=== PATIENT | female | born 1950 | race Caucasian/White ===

== ENCOUNTER → 2016-11-17 | Outpatient (CLI) | payer MEDICARE ==
--- NOTE | 2016-11-17 15:57 | RAD ---
Bilateral lower extremity venous Doppler ultrasound History: Bilateral lower extremity swelling. Comparison: None. Procedure: Color Doppler, spectral Doppler, and grayscale images are obtained with and without compression in the area of the common femoral vein, superficial femoral vein - femoral vein junction, main femoral vein (superficial femoral vein) and popliteal vein. Veins of the proximal calf are also imaged. Findings: There is normal duplex flow, color flow and compressibility of all visualized vein segments. No evidence of deep venous thrombosis is present. Left calf demonstrate superficial venous varicosities. Impression: No evidence of lower extremity deep venous thrombosis.
--- NOTE | 2016-11-17 16:42 | RAD ---
Bilateral lower extremity arterial ultrasound, 11/17/2016: History: Peripheral vascular disease, diabetes, claudication, leg swelling Duplex evaluation of the major arteries in both lower extremities was performed including grayscale, color-flow and spectral Doppler analysis. There are mild to moderate scattered atherosclerotic plaques bilaterally. The right common femoral artery demonstrates a biphasic Doppler waveform. The superficial femoral and popliteal Doppler waveforms on the right are monophasic. At the mid superficial femoral artery level on the right there is a prominent focal velocity acceleration up to 500 cm/s. This suggests underlying high-grade stenosis. Patent posterior tibial, peroneal and anterior tibial arteries are evident in the right lower leg demonstrating monophasic Doppler waveforms. The right dorsalis pedis artery is patent with a monophasic Doppler waveform. On the left, the common femoral Doppler waveform is biphasic. There is a velocity acceleration in the left mid superficial femoral artery up to 350 cm/s. This finding suggests moderate stenosis, although not clearly confirmed by the color images. The femoral and popliteal Doppler waveforms distal to this level are monophasic. Patent posterior tibial, anterior tibial and peroneal arteries are present in the left lower leg demonstrating monophasic Doppler waveforms. The left dorsalis pedis artery is patent with a monophasic Doppler waveform. IMPRESSION: 1. Mild to moderate scattered atherosclerotic plaquing. 2. Doppler findings suggesting high-grade stenosis in the mid right superficial femoral artery and moderate stenosis in the mid left superficial femoral artery. 3. Three-vessel runoff in both lower extremities demonstrating mildly degraded monophasic Doppler waveforms.
--- NOTE | 2016-11-18 07:37 | RAD ---
EXAM: MAMMO JENNIFER SCREENING BILATERAL. HISTORY: Screening. COMPARISON: 06/08/2017. FINDINGS: 2-D and 3-D tomosynthesis mammograms were obtained of both breasts in the CC and MLO projections. Computer-aided detection (CAD) was utilized. The breast parenchyma is heterogeneously dense which could reduce sensitivity of mammography (tissue density C). No dominant suspicious mass, suspicious microcalcifications, or architectural distortion is identified. Scattered, benign-appearing calcifications are seen in both breasts. IMPRESSION: No mammographic evidence of malignancy. BI-RADS CATEGORY: 2 BENIGN FINDING RECOMMENDED FOLLOW-UP: 12M 12 MONTH FOLLOW-UP PQRS compliance statement: Patient information was entered into a reminder system with a target due date for the next mammogram. Mammography is a sensitive method for finding small breast cancers, but it does not detect them all and is not a substitute for careful clinical examination. A negative mammogram does not negate a clinically suspicious finding and should not result in delay in biopsying a clinically suspicious abnormality. "Our facility is accredited by the [employer] Mammography Program."
== END | disposition home or self-care (01) ==
LOC: US 12:50
PROVIDERS: ATTEND Family Medicine
DX: I70.0 Atherosclerosis of aorta (principal); I73.9 Peripheral vascular disease, unspecified; M79.89 Other specified soft tissue disorders; E11.9 Type 2 diabetes mellitus without complications; F17.200 Nicotine dependence, unspecified, uncomplicated; Z12.31 Encounter for screening mammogram for malignant neoplasm of breast
CPT/HCPCS: 77063; 93925; 93970; G0202; 77067

== ENCOUNTER → 2017-01-12 | Outpatient (CLI) | payer MEDICARE ==
--- NOTE | 2017-01-12 16:06 | RAD ---
Examination: Left upper extremity venous duplex History: History of left arm swelling for 3 weeks Comparison: None available Technique: Grayscale, color Doppler 2-D, spectral waveform analysis of the left upper extremity venous system was performed Findings: The visualized internal jugular vein, subclavian vein, axillary vein, brachial vein, basilic vein, cephalic vein, radial, ulnar vein are patent. The visualized right subclavian vein is patent. Impression: No evidence of deep venous thrombosis in left upper extremity venous system.
== END | disposition home or self-care (01) ==
LOC: US 14:49
PROVIDERS: ATTEND Family Medicine
DX: M79.89 Other specified soft tissue disorders (principal); R60.0 Localized edema
CPT/HCPCS: 93971

== ENCOUNTER → 2017-09-21 | Outpatient (CLI) | payer MEDICARE ==
--- NOTE | 2017-09-21 15:03 | CARD ---
MR#: [id number] Date of Study: 09/21/2017 Ordering Physician: MABLE DUBON, Referring Physician: MABLE DUBON Tech: Olivia Benjamin RDCS APPROVED REPORT EXAM: Two-dimensional and M-mode echocardiogram with Doppler and color Doppler. Other Information Quality : Good INDICATION Mitral Regurgitation 2D DIMENSIONS RVDd2.9 (2.9-3.5cm)Left Atrium(2D)3.6 (1.6-4.0cm) IVSd1.1 (0.7-1.1cm)Aortic Root(2D)3.0 (2.0-3.7cm) LVDd4.4 (3.9-5.9cm)LVOT Diameter2.1 (1.8-2.4cm) PWd1.1 (0.7-1.1cm)LVDs2.9 (2.5-4.0cm) FS (%) 34.5 %SV55.9 ml LVEF(%)60.0 (>50%) Aortic Valve AoV Peak Naveen.191.6cm/sAoV VTI40.8cm AO Peak GR.14.7mmHgLVOT Peak Naveen.138.1cm/s LVOT VTI 23.99cmAO Mean GR.7mmHg BINTA (VMAX)2.38wt2ZSZ (VTI)1.99cm2 Mitral Valve MV E Tdddqavc82.5cm/sMV DECEL EAZA046rx MV A Wnmvzcre015.2cm/sE/A Ratio0.9 Tricuspid Valve TR P. Cspxzktx467xz/sRAP KJXMBXNA8qnEn TR Peak Gr.30dqQkRLMI12gvFd Pulmonary Vein S1 Wukplpst97.2cm/sD2 Nsjbliyq85.7cm/s LEFT VENTRICLE The left ventricle is normal size. There is normal left ventricular wall thickness. The left ventricu lar systolic function is normal and the ejection fraction is within normal range. The Ejection Fracti on is 55-60%. There is normal LV segmental wall motion. Transmitral Doppler flow pattern is Grade I-a bnormal relaxation pattern. RIGHT VENTRICLE The right ventricle is normal size. There is normal right ventricular wall thickness. The right ventr icular systolic function is normal. ATRIA The left atrium size is normal. The right atrium size is normal. The interatrial septum is intact wit h no evidence for an atrial septal defect or patent foramen ovale as noted on 2-D or Doppler imaging. AORTIC VALVE The aortic valve is mildly thickened but opens well. Doppler and Color Flow revealed no significant a ortic regurgitation. There is no significant aortic valvular stenosis. MITRAL VALVE The mitral valve is calcified but opens well. There is no evidence of mitral valve prolapse. There is no mitral valve stenosis. Doppler and Color Flow revealed no mitral valve regurgitation noted. TRICUSPID VALVE The tricuspid valve is normal in structure and function. Doppler and Color Flow revealed mild tricusp id regurgitation.The PA pressure was estimated at 37 mmHg. There is no tricuspid valve stenosis. PULMONIC VALVE Doppler and Color Flow revealed no pulmonic valvular regurgitation. There is no pulmonic valvular maninder nosis. GREAT VESSELS The aortic root is normal in size. The ascending aorta is mildly dilated at 3.5 cm. The IVC is normal in size and collapses >50% with inspiration. PERICARDIAL EFFUSION There is no evidence of significant pericardial effusion. Critical Notification Critical Value: No <Conclusion> The left ventricular systolic function is normal and the ejection fraction is within normal range. Th e Ejection Fraction is 55-60%. There is normal LV segmental wall motion. Doppler and Color Flow revealed mild tricuspid regurgitation.The PA pressure was estimated at 37 mmHg . No significant mitral regurgitation. The ascending aorta is mildly dilated at 3.5 cm. Signed by : True Andersen, Electronically Approved : 09/21/2017 15:03:24
== END | disposition home or self-care (01) ==
LOC: ECHO 12:44
PROVIDERS: ATTEND General Practice
DX: I08.1 Rheumatic disorders of both mitral and tricuspid valves (principal)
CPT/HCPCS: 93306

== ENCOUNTER → 2018-10-04 | Outpatient (CLI) | payer OTHER ==
[~2018-10-04] MED LIST: BUPIVACAINE-EPI 0.25%-1:200000 MPF 30 ML VIAL. ONE; HYDR-3165 PO; IBUP200T44 PO; IPRA3AMP29 NEB; LEVO75TA5 PO; LORA0.5T PO; METF500T16 PO; MOME13HF IH; OXYB5TAB33 PO; ROPI0.5T PO; SERT100T PO; SPIR25TA5 PO; TRAM50TA PO
[2018-10-04 11:27] VITALS: BP 123/62
--- NOTE | 2018-10-04 12:19 | PDOC4 ---
Operative Report DATE 10/04/2018 Preop Diagnosis Mass left upper back shoulder Post-op Diagnosis Mass left upper back and shoulder consistent with sebaceous cyst Operation Performed Patient is a 68-year-old female with complaints of a large mass on her upper back at her left shoulder states that his been getting larger and requests removal. Procedure of sedation of mass was explained to the patient detail risk benefits were also discussed including bleeding infection. Alternatives to this procedure also discussed with patient is seemed to understand and gave both verbal and written consent had procedure performed. Patient was taken to the [place] room placed in the right lateral positioning the area over the mass was prepped and draped usual sterile fashion using ChloraPrep. In over the mass was injected with half percent lidocaine with epinephrine incision was made with 15 blade scalpel was carried out to the cutaneous tissues entrain a sebaceous cyst the sebum contents were expressed and the sac was excised sharply with Metzenbaum scissors and sent for pathology. Wound was closed in 2 layers a deep layer running 3-0 Vicryl and the skin was reapproximate for septic and a Monocryl Mastisol Steri-Strips and island dressing were applied. Patient tolerated procedure well was discharged home in stable condition all sponge instrument needle counts listed as correct estimated blood loss 5 mL Surgeon Nato Anesthesiologist Local anesthesia ANESTHESIA PROPOSED: LOCAL Blood Loss 5 mL Specimen Sebaceous cyst 6 x 6 cm Complications None MERCY JEFFERSON MD Oct 04, 2018 12:19
--- NOTE | 2018-10-06 13:09 | PATHOLOGY ---
[facility] Accession Number: [id number] . 01 Material submitted: . LEFT SHOULDER MASS . 01 Clinical history: . Left shoulder mass . 02 Diagnosis: Fibroadipose tissue, left shoulder mass excision: - Epidermal inclusion cyst, with focal erosion of cyst lining and foreign body granulomatous reaction. (JPM:apartment leasing consultant; 10/04/2018) MBR/10/05/2018 . 02 Comment: There is no evidence of malignancy. (JPM:apartment leasing consultant; 10/04/2018) . 02 Electronically signed: . Jh Luz MD, Pathologist NPI- [id number] . 01 Gross description: . The specimen is received in formalin, labeled "Michael Onofre, left shoulder mass", is a previously opened, disrupted quintanilla-white cyst measuring 6.2 x 4.0 cm. Further sectioning reveals the cyst wall adherent with keratinaceous material. The wall has an average thickness of less than 0.1 cm. No discrete granulation tissue or papillary excrescence identified. The container is filled with abundant keratinaceous material. Gut Carrier tissue is submitted in A1. ([facility]; 10/04/2018) [facility]S/SHS . 02 Pathologist provided ICD-10: L72.0 . 02 CPT . 354064 Specimen Comment: A courtesy copy of this report has been sent to Specimen Comment: [phone], . Specimen Comment: Report sent to / DR DUBON Specimen Comment: A duplicate report has been generated due to demographic updates. Performed at: 01 [facility] [place] [id number] [facility] [address], [place], [place] [id number] MD Rocky Marcos MD Phone: [phone] Performed at: 02 [facility] [place] [address] [place], [place] [id number] MD Jh Luz MD Phone: [phone]
== END | disposition home or self-care (01) ==
LOC: SURG 10:00
PROVIDERS: ATTEND Surgery
DX: L72.0 Epidermal cyst (principal); Z88.2 Allergy status to sulfonamides; E11.9 Type 2 diabetes mellitus without complications; Z79.84 Long term (current) use of oral hypoglycemic drugs; Z83.3 Family history of diabetes mellitus; Z82.49 Family history of ischemic heart disease and other diseases of the circulatory system; F17.210 Nicotine dependence, cigarettes, uncomplicated; Z72.89 Other problems related to lifestyle; Z79.899 Other long term (current) drug therapy
CPT/HCPCS: 11406; 12032; 88304; J3490; 11402

== ENCOUNTER → 2018-11-08 | Outpatient (CLI) | payer OTHER ==
[2018-10-04 11:27] VITALS: BP 123/62
[~2018-11-08] MED LIST changes: -BUPIVACAINE-EPI 0.25%-1:200000 MPF 30 ML VIAL. ONE
--- NOTE | 2018-11-08 14:12 | RAD ---
EXAM: Chest, 2 views. HISTORY: COPD. COMPARISON: None. FINDINGS: 2 views of the chest are obtained. There is no infiltrate, pleural effusion or pneumothorax. The heart is normal in size. There is hyperinflation due to inspiratory effort or emphysema. There is a small nodular opacity overlying the right mid thorax, possibly due to a partially calcified granuloma. There are healed or healing right rib fractures. IMPRESSION: 1. No acute pulmonary finding. 2. Suspected COPD. 3. Small nodular opacity overlying the right mid thorax, possibly due to a partially calcified granuloma. Short-term radiographic follow-up can be performed to exclude a noncalcified nodule in this location. Electronically signed by: Ryann Fajardo MD (11/08/2018 2:09 PM) [place] [id number]
--- NOTE | 2018-11-10 12:27 | RAD ---
DATE: 11/08/2018 EXAM: MAMMO JENNIFER SCREENING BILATERAL HISTORY: Routine screening COMPARISON: Were 12/12/2016 This study was interpreted with the benefit of Computerized Aided Detection (CAD). Breast Density: HETERO The breast parenchyma is heterogenously dense, which could reduce sensitivity of mammography. Breast parenchyma level C. FINDINGS: 2-D and 3-D tomosynthesis imaging was performed in CC and MLO projections. No new or enlarging breast densities are seen. Bilateral microcalcifications have progressed. The majority of these have a benign appearance. There is mild clustering of microcalcifications in the right breast just medial to the midline. Similar microcalcifications seen superiorly in the left breast on the previous study have evolved into a coarse rim-like calcification. IMPRESSION: Increasing, but probably benign microcalcifications as described above. Follow-up right mammography in 6 months and bilateral mammography at one year is suggested. BI-RADS CATEGORY: 3 PROBABLY BENIGN FINDING(S)-SHORT INTERVAL FOLLOW-UP SUGGESTED RECOMMENDED FOLLOW-UP: 6M 6 MONTH FOLLOW-UP PQRS compliance statement: Patient information was entered into a reminder system with a target due date for the next mammogram. Mammography is a sensitive method for finding small breast cancers, but it does not detect them all and is not a substitute for careful clinical examination. A negative mammogram does not negate a clinically suspicious finding and should not result in delay in biopsying a clinically suspicious abnormality. "Our facility is accredited by the [employer] Mammography Program."
--- NOTE | 2018-11-14 16:04 | RAD ---
Indication: Postmenopausal screening for osteoporosis. COMPARISON: April 21, 2005. Bone Density: -BMD: (g/cm2) - AP Spine Total (L1-L4).......... 1.005. - Total right Hip................. 0.804. T-Score: - AP Spine Total (L1-L4)......... -1.5. - Total right Hip................. -1.2. Z-Score: - AP Spine Total (L1-L4).......... -0.7. - Total right Hip................. -0.5. World Health Organization criteria for BMD interpretation classify patients as Normal (T-score at or above -1.0), Osteopenic (T-score between -1.0 and -2.5), or Osteoporotic (T-score at or below -2.5). Impression: 1. AP Spine Total L1-L4--- osteopenia. Since the previous study, there has been a decrease in the BMD of 9.5%. 2. Total right Hip--- osteopenia. Since the previous study, there has been a decrease in the BMD of 16.5%. Electronically signed by: Orestes Hale MD (11/14/2018 4:01 PM) [facility]
== END | disposition home or self-care (01) ==
LOC: DXRAD 10:06
PROVIDERS: ATTEND Family Medicine
DX: Z12.31 Encounter for screening mammogram for malignant neoplasm of breast (principal); Z13.820 Encounter for screening for osteoporosis; M85.89 Other specified disorders of bone density and structure, multiple sites; J44.9 Chronic obstructive pulmonary disease, unspecified
CPT/HCPCS: 71046; 77063; 77067; 77080

== ENCOUNTER → 2019-02-08 | Outpatient (CLI) | payer OTHER ==
[2018-10-04 11:27] VITALS: BP 123/62
--- NOTE | 2019-02-08 10:15 | RAD ---
Chest radiograph 02/08/2019 12:00 AM INDICATION: Productive cough for one month COMPARISON: November 08, 2018 TECHNIQUE: Frontal and lateral views of the chest are provided. FINDINGS: The cardiomediastinal silhouette is within normal limits. There are no pleural effusions. There is no pulmonary vascular congestion. There is no pneumothorax. 5.2 cm rounded masslike area of consolidation in the superior segment right lower lobe. There is an additional masslike area versus consolidation in the left suprahilar region with 2 nodular opacities measuring up to 2.8 cm. No significant osseous abnormality is identified. IMPRESSION: Masslike areas of consolidative changes in the left suprahilar region and right superior segment right lower lobe are new from November 08, 2018. Frontal considerations would include multifocal pneumonia versus metastatic disease. Recommend follow-up to resolution or further evaluation with CT chest. Electronically signed by: Lakesha Gordon MD (02/08/2019 10:11 AM) [id number]
== END | disposition home or self-care (01) ==
LOC: DXRAD 08:52
PROVIDERS: ATTEND Family Medicine
DX: J44.0 Chronic obstructive pulmonary disease with (acute) lower respiratory infection (principal)
CPT/HCPCS: 71046

== ENCOUNTER → 2019-02-13 | Outpatient (CLI) | payer OTHER ==
[2018-10-04 11:27] VITALS: BP 123/62
[~2019-02-13] MED LIST changes: +IOHEXOL 300 MG/ML 75 ML VIAL. IV ONE
--- NOTE | 2019-02-13 10:36 | RAD ---
EXAM: CT Chest with IV contrast CLINICAL HISTORY: Lung mass, history of asthma. COMPARISON: Chest x-ray 02/08/2019 TECHNIQUE: CT of the chest following the administration of intravenous contrast. Axial, coronal and sagittal reformatted images were generated. ---PQRS compliance statement - One or more of the following individualized dose reduction techniques were utilized for this study: 1. Automated exposure control 2. Adjustment of the mA and/or kV according to patient size 3. Use of iterative reconstruction technique--- FINDINGS: CHEST: Heart is not enlarged. Coronary calcifications are seen. No pericardial effusion. Small right pleural effusion. No left pleural effusion. No pneumothorax. A right thyroid nodule measures approximately 3.5 x 2.7 cm and should be further assessed with ultrasound and possible FNA. Enlarged right hilar lymph node measures 2.4 x 2 cm. A right infrahilar lymph node measures 2.2 x 1.2 cm (series 4 image 50). Several prominent left hilar lymph nodes are seen, measuring up to 9 mm short axis. A right paratracheal lymph node measures 1.2 x 1.1 cm. There is a large left lower lobe lung nodule measuring 4.9 x 4.7 cm (series 4 image 53) with small satellite nodules. The border is irregular. Associated groundglass opacities are also seen with interstitial prominence. Central low attenuation suggests central necrosis. A spiculated left upper lobe lung mass measures approximately 4.1 x 3 cm with central low attenuation likely necrosis. Small satellite nodule is seen measuring up to 1.2 cm. Visualized Upper abdomen: A 1.4 cm left adrenal nodule is seen. A 3.8 cm right adrenal mass is seen. Evaluation of the liver and spleen is limited given phase of contrast although no obvious lesion is identified. Bones: Sclerotic focus T8 may represent bone island. Degenerative changes of the spine are seen. IMPRESSION: 1. Bilateral lung masses are seen with central necrosis, suspicious for necrotic malignancy. This can be further evaluated by PET scan and/or biopsy. 2. Prominent and enlarged mediastinal and hilar lymph nodes are seen. These are suspicious for metastatic involvement. 3. Left adrenal nodule and right adrenal mass, highly suspicious for metastatic involvement, can be further assessed by PET. 4. A right thyroid nodule measures approximately 3.5 x 2.7 cm and should be further assessed with ultrasound and possible FNA if not previously evaluated. 5. Small right pleural effusion. Electronically signed by: Christophe Arguello MD (02/13/2019 10:33 AM) [facility]
== END | disposition home or self-care (01) ==
LOC: CT 08:53
PROVIDERS: ATTEND Family Medicine
DX: J90 Pleural effusion, not elsewhere classified (principal); R91.8 Other nonspecific abnormal finding of lung field; E04.1 Nontoxic single thyroid nodule; E27.9 Disorder of adrenal gland, unspecified; M47.814 Spondylosis without myelopathy or radiculopathy, thoracic region; I25.10 Atherosclerotic heart disease of native coronary artery without angina pectoris; E11.9 Type 2 diabetes mellitus without complications; J45.909 Unspecified asthma, uncomplicated; Z87.891 Personal history of nicotine dependence
CPT/HCPCS: 71260; Q9967

== ENCOUNTER 2019-03-02 13:53 | Emergency (ER) | payer OTHER ==
[~2019-03-02] VITALS: Ht 170.2 cm; Wt 60.3 kg
[~2019-03-02 13:53] MED LIST changes: -IOHEXOL 300 MG/ML 75 ML VIAL. IV ONE
--- NOTE | 2019-03-02 14:09 | PHYS DOC ---
Adult General Chief Complaint Chief Complaint: WEAKNESS/GENERALIZED HPI HPI 69-year-old female presents with generalized weakness and decreased appetite. Patient was recently diagnosed with possible lung cancer. She is scheduled for a biopsy next week. The last 4 days, she has had decreased appetite because anything she eats or drinks takes "nasty". He water has an unusual taste. She has been feeling more and more weak over these 4 days. She still has a productive cough, but admits the cough is improved from what it was a month ago. She has been through several rounds of antibiotics and prednisone by her PCP. She denies fever or chills. She denies nausea, vomiting, diarrhea, constipation. Review of Systems Review of Systems Constitutional: Denies fever or chills. Weakness. [] Eyes: Denies change in visual acuity, redness, or eye pain [] HENT: Denies nasal congestion or sore throat [] Respiratory: Cough without shortness of breath [] Cardiovascular: No additional information not addressed in HPI [] GI: Denies abdominal pain, nausea, vomiting, bloody stools or diarrhea [] : Denies dysuria or hematuria [] Musculoskeletal: Denies back pain or joint pain [] Integument: Denies rash or skin lesions [] Neurologic: Denies headache, focal weakness or sensory changes [] Endocrine: Denies polyuria or polydipsia [] All other systems were reviewed and found to be within normal limits, except as documented in this note. Current Medications Current Medications Current Medications Medications (Trade) Dose Ordered Sig/Fran Start Time Stop Time Status Last Admin Dose Admin Sodium Chloride 1,000 ml @ 1,000 mls/hr 1X ONCE 03/02/19 14:15 03/02/19 15:14 Allergies Allergies Allergies Coded Allergies Type Severity Reaction Last Updated Verified Sulfa (Sulfonamide Antibiotics) Allergy Unknown 02/13/19 Yes Physical Exam Physical Exam Constitutional: Well developed, well nourished, no acute distress, non-toxic appearance. [] HENT: Normocephalic, atraumatic, bilateral external ears normal, oropharynx dry, no oral exudates, nose normal. [] Eyes: PERRLA, EOMI, conjunctiva normal, no discharge. [] Neck: Normal range of motion, no tenderness, supple, no stridor. [] Cardiovascular:Heart rate regular rhythm, no murmur [] Lungs & Thorax: Bilateral breath sounds diminished, worse right base. [] Abdomen: Bowel sounds normal, soft, no tenderness, no masses, no pulsatile masses. [] Skin: Warm, dry, no erythema, no rash. [] Back: No tenderness, no CVA tenderness. [] Extremities: No tenderness, no cyanosis, no clubbing, ROM intact, no edema. [] Neurologic: Alert and oriented X 3, normal motor function, normal sensory function, no focal deficits noted. [] Psychologic: Affect normal, judgement normal, mood normal. [] EKG EKG Sinus rhythm, rate 93, normal axis, no ST elevations or depressions[] Radiology/Procedures Radiology/Procedures [] Impressions: CHEST PA LATERAL History: Weakness Comparison: 02/08/2019 two-view chest x-ray exam, 02/13/2019 CT chest with contrast. Findings: Right heart border is obscured due to presence of a large right pleural effusion. Spurring of the right lung apex is evident with evaluation at this level. Left upper lung mass is again seen.. Pulmonary vasculature is normal. Dextroconvexity of the thoracolumbar spine is present. Mild pulmonary hyperinflation suspected. IMPRESSION: Interval development of a large right pleural effusion with adjacent basilar atelectasis and obscuration of the right heart border. Previously seen right lower lung mass is obscured on this exam. Left upper lung mass again seen. Electronically signed by: Mahesh Shirley MD (03/02/2019 2:56 PM) [facility] DICTATED AND SIGNED BY: MAHESH SHIRLEY MD DATE: 03/02/19 [id number] CC: GABRIEL RODRIGUEZ DO; CINDY HELTON MD ~ Course & Med Decision Making Course & Med Decision Making Pertinent Labs and Imaging studies reviewed. (See chart for details) Primary interpretation of the patient's chest x-ray shows a large pleural effusion on the right. The patient's O2 was 88-89. We placed her on 2 L and she improved to 95%. Labs significant for several normal findings. Her sodium is 127. 1 L normal saline has been ordered. See chart for details. Her EKG is u nremarkable. I discussed the patient with Dr. Isaacs and he has accepted the patient for transfer to [facility] and admission. I discussed this with the patient and her family and they're in agreement with transfer. She will go by ambulance. [] Dragon Disclaimer Dragon Disclaimer This electronic medical record was generated, in whole or in part, using a voice recognition dictation system. Departure Departure: Impression: Primary Impression: Pleural effusion, right Additional Impressions: Shortness of breath Hypoxia Mass of left lung Mass of right lung Disposition: [facility] Admitting Physician: Cesar Isaacs Condition: STABLE Referrals: CINDY HELTON MD (PCP) Problem Qualifiers GABRIEL RODRIGUEZ DO Mar 02, 2019 14:09
[2019-03-02 14:14] LABS: BASO # 0.1 x10^3/uL (0.0-0.2); BASO % 0 % (0-3); EOS % 0 % (0-3); HEMATOCRIT 35.3 % (36.0-47.0); HEMOGLOBIN 11.7 g/dL (12.0-15.5); LYMPH # 0.7 x10^3/uL (1.0-4.8); LYMPH % 4 % (24-48); MEAN CORPUSCULAR HEMOGLOBIN 32 pg (25-35); MEAN CORPUSCULAR HGB CONC 33 g/dL (31-37); MEAN CORPUSCULAR VOLUME 97 fL (79-100); MONO # 1.4 x10^3/uL (0.0-1.1); MONO % 9 % (0-9); NEUT # 14.2 x10^3uL (1.8-7.7); NEUT % 87 % (31-73); PLATELET COUNT 419 x10^3/uL (140-400); RED BLOOD COUNT 3.63 x10^6/uL (3.50-5.40); RED CELL DISTRIBUTION WIDTH 13.9 % (11.5-14.5); WHITE BLOOD COUNT 16.4 x10^3/uL (4.0-11.0)
[2019-03-02] MEDS ORDERED: IV NORMAL SALINE 1,000ML 1,000 ML IV ONE (14:15)
[2019-03-02 14:29] LABS: ALBUMIN 2.2 g/dL (3.4-5.0); ALBUMIN/GLOBULIN RATIO 0.5 (1.0-1.7); CALCIUM 9.6 mg/dL (8.5-10.1); CREATININE 0.9 mg/dL (0.6-1.0); GFR 62.3; TOTAL BILIRUBIN 0.6 mg/dL (0.2-1.0)
[2019-03-02 14:40] LABS: % BANDS 13 % (0-9); % LYMPHS 5 % (24-48); % MONOS 4 % (0-10); % SEGS 78 % (35-66)
[2019-03-02 14:41] LABS: PLT ESTIMATE INCREASED (ADEQUATE)
[2019-03-02 14:42] LABS: TOXIC GRANULATION MOD; TOXIC VACUOLATION SLIGHT
[2019-03-02] MEDS ORDERED: MORPHINE SULFATE 2 MG/ML DISP.SYRIN. IV ONE ×2 (14:45→16:00)
--- NOTE | 2019-03-02 14:59 | RAD ---
CHEST PA LATERAL History: Weakness Comparison: 02/08/2019 two-view chest x-ray exam, 02/13/2019 CT chest with contrast. Findings: Right heart border is obscured due to presence of a large right pleural effusion. Spurring of the right lung apex is evident with evaluation at this level. Left upper lung mass is again seen.. Pulmonary vasculature is normal. Dextroconvexity of the thoracolumbar spine is present. Mild pulmonary hyperinflation suspected. IMPRESSION: Interval development of a large right pleural effusion with adjacent basilar atelectasis and obscuration of the right heart border. Previously seen right lower lung mass is obscured on this exam. Left upper lung mass again seen. Electronically signed by: Mahesh Loco MD (03/02/2019 2:56 PM) [facility]
[2019-03-02] MEDS ORDERED: ONDANSETRON PF 4 MG/2 ML VIAL. IV ONE (15:00)
--- NOTE | 2019-03-02 15:40 | EKG ---
[address] [address] Test Date: 2019-03-02 Test Time: 14:16:00 Pat Name: NARCISA CARDENAS Department: Room: Gender: F Speech Language Pathology Assistant: LANDY : 1950 Requested By: GABRIEL RODRIGUEZ Order Number: [id number] Reading MD: Measurements Intervals [place] Rate: 93 P: 82 [place]: 152 QRS: 2 QRSD: 78 T: 63 QT: 342 QTc: 428 Interpretive Statements SINUS RHYTHM R-S TRANSITION ZONE IN V LEADS DISPLACED TO THE LEFT LOW LIMB LEAD VOLTAGE NO SPECIFIC ECG ABNORMALITIES RI6.01 No previous ECG available for comparison
[2019-03-02 17:31] VITALS: BP 125/62
== END 2019-03-02 17:46 | disposition short-term general hospital (02) ==
LOC: ER 13:53
DX: J90 Pleural effusion, not elsewhere classified (principal); R09.02 Hypoxemia; R91.8 Other nonspecific abnormal finding of lung field; Z88.2 Allergy status to sulfonamides
CPT/HCPCS: 36415; 71046; 80053; 84484; 85007; 85025; 93005; 96374; 96375; 96376; 99285; J2270; J2405; J7030

== ENCOUNTER → 2019-04-18 | Outpatient (CLI) | payer MEDICARE ==
--- NOTE | 2019-04-19 10:15 | RAD ---
Examination: CT CHEST WO CONTRAST History: Emphysema Comparison/Correlation: 02/13/2019 CT chest with contrast Findings: Axial images of the chest were obtained without contrast. Sagittal and coronal reformatted images were provided. Right lower lobe bronchial wall thickening is present. Interstitial thickening of the right lower lung field noted. Scattered patchy infiltrates involving the right lung field are noted. Nodular punctate infiltrates involving the left lower lung field laterally also are present. At the anterior left mid thoracic level, there is a cavitary lesion with surrounding stranding. Right lateral basilar loculated pneumothorax or large cavitary lesion is present. Marked pleural thickening about this hydropneumothorax is evident. Small amount of fluid is present within the right pleural cavity at the posterior basilar aspect. Right adrenal gland nodule measuring 2.7 cm x 1.9 cm is present. Hounsfield units of up to 22 identified. Septations are suggested within it. Left adrenal gland hyperdense lesion measuring up to 1.2 cm diameter. Sclerotic T8 vertebral body lesion is again identified without significant change. Impression: Moderate-sized right posterior basilar loculated hydropneumothorax or possibly large right basilar cavitary lesion is new in the interval. Pleural wall thickening is normal. Patchy punctate nodular infiltrates and cavitary lesion noted. Correlate for underlying infectious etiologies. Bilateral adrenal gland nodules are stable in size. Discussed with Dr. Devyn Wise on 04/19/2019 at 10:11 AM. PQRS Compliance Statement: One or more of the following individualized dose reduction techniques were utilized for this examination: 1. Automated exposure control 2. Adjustment of the mA and/or kV according to patient size 3. Use of iterative reconstruction technique Electronically signed by: Mahesh Loco MD (04/19/2019 10:12 AM) [facility]
== END | disposition home or self-care (01) ==
LOC: CT 10:17
PROVIDERS: ATTEND Internal Medicine Pulmonary Disease
DX: J94.8 Other specified pleural conditions (principal); E27.8 Other specified disorders of adrenal gland; G95.89 Other specified diseases of spinal cord; J43.9 Emphysema, unspecified
CPT/HCPCS: 71250

== ENCOUNTER → 2019-05-05 | Outpatient (CLI) | payer MEDICARE ==
--- NOTE | 2019-05-05 13:28 | RAD ---
Chest radiograph 05/05/2019 12:00 AM INDICATION: Cough COMPARISON: 03/02/2019 TECHNIQUE: Frontal and lateral views of the chest are provided. FINDINGS: The cardiomediastinal silhouette is within normal limits. Decreased size of previously large right pleural effusion with adjacent compressive atelectasis or infiltrate. New pigtail catheter is identified at the right lung base with loculated right hydropneumothorax. There is nodular consolidation in the right lung base with possible cavitary lesion. Decrease in nodular opacity left upper lobe with more bandlike appearance. No significant osseous abnormality is identified. IMPRESSION: Pigtail catheter is identified the right lung base with significant decrease in right sided large pleural effusion. There is either a loculated hydropneumothorax versus cavitary lesion at the right lung base. Previously seen nodular consolidation in the left upper lobe has decreased in size and more bandlike and linear. Electronically signed by: Lakesha Gordon MD (05/05/2019 1:25 PM) [id number]
== END | disposition home or self-care (01) ==
LOC: DXRAD 12:24
PROVIDERS: ATTEND Internal Medicine Critical Care Medicine
DX: J90 Pleural effusion, not elsewhere classified (principal)
CPT/HCPCS: 71046

== ENCOUNTER → 2019-05-15 | Outpatient (CLI) | payer MEDICARE ==
--- NOTE | 2019-05-15 14:26 | RAD ---
CT of the chest without contrast 05/15/2019 INDICATION: Emphysema. Productive cough. Pancreas O. Valle for many years. COMPARISON STUDY: CT of the chest without contrast April 18, 2019. TECHNIQUE: Multidetector CT imaging of the chest was performed without contrast FINDINGS: The large loculated hydropneumothorax on the right is minimally decreased with respect to comparison study. Predominantly the air component of the pleural fluid collection appears to be what has decreased in the interim. Multifocal areas of markedly pleural thickening are seen circumferentially involving this process. Areas of internal septation are identified. Other parenchymal opacities including groundglass opacification are seen throughout the bilateral lungs similar to comparison study. Cavitary lesions in the left upper lobe are stable from comparison exam. The thyroid is enlarged bilaterally. Thyroid is heterogenous in attenuation. Calcification seen within left thyroid. The appearance is grossly similar. Mild mediastinal adenopathy similar to comparison study. No bulky mediastinal lymph nodes are appreciated on limited noncontrast enhanced evaluation the mediastinum. Coronary calcification is seen. Limited visualization of the upper abdomen demonstrates fullness in the expected region of the right adrenal gland, unchanged from prior study. The spleen appears to be enlarged also similar to comparison exam. No acute osseous changes are identified. Sclerotic lesion in the T8 vertebral body is unchanged. This has a benign appearance. IMPRESSION: 1. Persistent right hydropneumothorax thorax with marketed thickening of the associated pleura and septations. Some decrease in the gaseous component with respect to most recent CT scan noted. Patient with known history of empyema with chest tube drainage and antibiotics. 2. Other scattered pulmonary opacities including cavitary lesions are unchanged. 3. Thyromegaly. 4. Right adrenal mass, grossly unchanged CT DOSING PQRS STATEMENT: One or more of the following individualized dose reduction techniques were utilized for this examination: 1. Automated exposure control 2. Adjustment of the mA and/or kV according to patient size 3. Use of iterative reconstruction technique Electronically signed by: Aaron Bryant MD (05/15/2019 2:23 PM) [id number]
== END | disposition home or self-care (01) ==
LOC: CT 11:20
PROVIDERS: ATTEND Internal Medicine Pulmonary Disease
DX: J43.9 Emphysema, unspecified (principal); J94.8 Other specified pleural conditions; I25.10 Atherosclerotic heart disease of native coronary artery without angina pectoris; R59.0 Localized enlarged lymph nodes; E01.0 Iodine-deficiency related diffuse (endemic) goiter; E27.9 Disorder of adrenal gland, unspecified; F17.200 Nicotine dependence, unspecified, uncomplicated
CPT/HCPCS: 71250

== ENCOUNTER 2020-10-15 12:44 | Observation (INO) | payer MEDICARE ==
[~2020-10-15] VITALS: Ht 170.2 cm; Wt 62.8 kg
--- NOTE | 2020-10-15 13:48 | PHYS DOC ---
Past History Past Medical History: Cancer, COPD, Diabetes (AMPARO NORIEGA APRN) Past Surgical History: Other (AMPARO NORIEGA APRN) Alcohol Use: Occasionally Drug Use: None (AMPARO NORIEGA APRN) General Adult EDM: Chief Complaint: MECHANICAL FALL HPI: HPI: Patient is a 70-year-old female who presents by EMS after a fall. Family states patient took 2 Ativan and 1 hydrocodone prior to falling when she went to take a shower. Patient has skin tear to left forearm and abrasion to her back. Patient is alert to self. Patient speech is garbled. Unable to obtain health history from patient at this time. Patient's boyfriend states "I was helping her out of the shower when she is slipped and fell back into the bathtub". "I turned around to wash my hands and she fell again into the bathtub". Boyfriend denies patient hit her head or loss of consciousness. Denies being on any blood thinners. Boyfriend states that she has been told not to take her Ativan with her hydrocodone. "When she takes them both together she gets very groggy but she does it anyways because of her chronic back pain". (AMPARO NORIEGA APRN) Review of Systems: Review of Systems: Constitutional: Denies fever or chills Eyes: Denies change in visual acuity HENT: Denies nasal congestion or sore throat Respiratory: Denies cough or shortness of breath Cardiovascular: Denies chest pain or edema GI: Denies abdominal pain, nausea, vomiting, bloody stools or diarrhea : Denies dysuria Musculoskeletal: Denies back pain or joint pain Integument: Denies rash Neurologic: Denies headache, focal weakness or sensory changes Endocrine: Denies polyuria or polydipsia Lymphatic: Denies swollen glands Psychiatric: Denies depression or anxiety (AMPARO NORIEGA APRN) Allergies: Allergies: Allergies Coded Allergies Type Severity Reaction Last Updated Verified Sulfa (Sulfonamide Antibiotics) Allergy Unknown 03/02/19 Yes (AMPARO NORIEGA APRN) Physical Exam: PE: Constitutional: Well developed, well nourished, no acute distress, non-toxic appearance. [] HENT: Normocephalic, atraumatic, bilateral external ears normal, oropharynx moist, no oral exudates, nose normal. [] Eyes: PERRLA, EOMI, conjunctiva normal, no discharge. [] Neck: Normal range of motion, no tenderness, supple, no stridor. [] Cardiovascular:Heart rate regular rhythm, no murmur [] Lungs & Thorax: Bilateral breath sounds clear to auscultation [] Abdomen: Bowel sounds normal, soft, no tenderness, no masses, no pulsatile masses. [] Skin: Warm, skin tear to left forearm Back: No tenderness, no CVA tenderness, abrasion to left side back. [] Extremities: No tenderness, no cyanosis, no clubbing, ROM intact, no edema. [] Neurologic: Alert and oriented X 1, normal motor function, normal sensory function, no focal deficits noted. [] Psychologic: Affect normal, judgement normal, mood normal. [] (AMPARO NORIEGA APRN) Current Patient Data: Vital Signs: Vital Signs Date Time Temp Pulse Resp B/P (MAP) Pulse Ox O2 Delivery O2 Flow Rate FiO2 10/15/20 13:08 98.4 67 18 195/83 (120) 94 Nasal Cannula 2.0 (AMPARO NORIEGA APRN) EKG: EKG: [] (AMPARO NORIEGA APRN) Radiology/Procedures: Radiology/Procedures: []CT HEAD AND C-SPINE WO History: Fall. Comparison: CT thoracic spine obtained concurrently. Technique: Noncontrast CT of the head and cervical spine. Findings: Motion artifact significantly limits examination. CT HEAD: There is no evidence for intracranial mass or hemorrhage. There is no hydrocephalus or midline shift. No abnormal extra-axial fluid collections are present. No evidence of large territorial infarction. There is focal hypodensity in the left basal ganglia which may represent sequela of age-indeterminate lacunar infarct. The visualized paranasal sinuses and mastoid air cells are clear. The skull and scalp are within normal limits. CT CERVICAL SPINE: No cervical spine fractures identified, however motion artifact significantly degrades exam. Exaggerated cervical lordosis. There is moderate anterolisthesis of C3 on C4 and mild anterolisthesis of C4 on C5 on the basis of facet hypertrophy. Moderate disc space narrowing C4-C5 and C6-C7. Multilevel advanced facet hypertrophy. High-grade cervical stenosis measuring approximately 4 mm AP diameter at the level of C5. This may be overestimated by motion artifact. Atherosclerotic calcifications of the carotid bulbs. Enlarged thyroid. Impression: 1. Mildly motion degraded CT of the head without acute intracranial finding identified. Hypodensity in the left basal ganglia likely sequela of lacunar infarct. 2. Significantly motion degraded cervical spine CT without definite fracture identified. 3. High grade cervical stenosis at the level of C5 with approximately 4 mm AP diameter on the basis of facet hypertrophy and C3 on C4 and C4 on C5 anterolisthesis. Cervical stenosis may be overestimated by motion artifact. 4. Enlarged thyroid without discrete mass identified. ------- (AMPARO NORIEGA APRN) Heart Score: C/O Chest Pain: No Risk Factors: Risk Factors: DM, Current or recent (<one month) smoker, HTN, HLP, family history of CAD, obesity. Risk Scores: Score 0 - 3: 2.5% MACE over next 6 weeks - Discharge Home Score 4 - 6: 20.3% MACE over next 6 weeks - Admit for Clinical Observation Score 7 - 10: 72.7% MACE over next 6 weeks - Early Invasive Strategies (AMPARO NORIEGA APRN) Course & Med Decision Making: Course & Med Decision Making CT head and neck ordered to rule out fracture or bleed. Region to back, CT thoracic without ordered to rule out fracture. Movement denies patient lost consciousness or hit her head. Denies blood thinners. CT head and neck was negative for fracture or bleed. CT of thoracic was negative fracture. Patient is on 2 L nasal cannula 97%. Boyfriend is at [facility]. Boyfriend states that she is not normally on O2 at home like originally stated by EMS. Patient is still hard to arouse. Narcan ordered due to AMS. Patient is 95% on room air. Patient was given second dose of Narcan with no difference in mentation. Spoke with Dr. Baird who suggested giving Romazicon prior to admission. Patient did not respond to the Romazicon. Dr. Baird is accepting the patient on telemetry for altered mentation. is okay with this plan and in agreement. Patient's last pressure was 221/89. 12.5MG hydralazine given to decrease BP. Patient states that she is on blood pressure medication at home but was unable to tell us the name. Blood pressure 174/95 [] (AMPARO NORIEGA APRN) Course & Med Decision Making I assumed care of patient as attending physician at shift change. I reviewed case with [employer] who is overseeing the care of patient. I personally saw and evaluated patient repeating certain aspects of history and physical exam Patient delirious, I question if this is due to reported fall versus polysubstance abuse versus hypertension (PRESS?). Need for blood pressure con trol and hospital admission was advised. [facility] [employer] contacted Dr. Baird who agreed for admission under his care I personally updated patient on proposed plan of care and she was amenable. I instructed [employer] T[employer]ATE to administer 10 mg hydralazine IV for blood pressure control. I also instructed [employer] to discuss need to start IV blood control agents on transfer to floor as indicated (ORA WILSON DO) Dragon Disclaimer: Dragon Disclaimer: This electronic medical record was generated, in whole or in part, using a voice recognition dictation system. (AMPARO NORIEGA APRN) Departure Departure: Impression: Primary Impression: Altered mental status Additional Impressions: History of fall Hypertension Opiate dependence Disposition: 09 ADMITTED INPT THIS HOSP Admitting Physician: Royer Baird (ORA WILSON DO) Referrals: CINDY HELTON MD (PCP) AMPARO NORIEGA APRN Oct 15, 2020 13:48 ORA WILSON DO Oct 16, 2020 05:37
[2020-10-15 14:04] LABS: BASO % 1 % (0-3); EOS % 0 % (0-3); HEMATOCRIT 40.7 % (36.0-47.0); HEMOGLOBIN 13.3 g/dL (12.0-15.5); LYMPH # 1.4 x10^3/uL (1.0-4.8); LYMPH % 29 % (24-48); MEAN CORPUSCULAR HEMOGLOBIN 33 pg (25-35); MEAN CORPUSCULAR HGB CONC 33 g/dL (31-37); MEAN CORPUSCULAR VOLUME 102 fL (79-100); MONO # 0.6 x10^3/uL (0.0-1.1); MONO % 12 % (0-9); NEUT # 2.7 x10^3uL (1.8-7.7); NEUT % 58 % (31-73); PLATELET COUNT 158 x10^3/uL (140-400); RED BLOOD COUNT 3.98 x10^6/uL (3.50-5.40); RED CELL DISTRIBUTION WIDTH 14.6 % (11.5-14.5); WHITE BLOOD COUNT 4.6 x10^3/uL (4.0-11.0)
[2020-10-15 14:15] LABS: BARBITURATES NEG (NEG); BENZODIAZEPINES NEG (NEG); CANNABINOIDS NEG (NEG); COCAINE NEG (NEG); METHADONE NEG (NEG); OPIATES POS (NEG); PHENCYCLIDINE NEG (NEG)
[2020-10-15 14:17] LABS: AMPHETAMINE/METHAMPHETAMINE NEG (NEG)
[2020-10-15 14:18] LABS: BACTERIA,URINE 0 /HPF (0-FEW); BILIRUBIN,URINE NEG (NEG); CLARITY,URINE CLEAR; COLOR,URINE YELLOW; GLUCOSE,URINE NEG (NEG); NITRITE,URINE NEG (NEG); RBC,URINE 20-40 /HPF (0-2); UROBILINOGEN,URINE 0.2 mg/dL (0.2 mg/dL); WBC,URINE RARE /HPF (0-4)
[2020-10-15 14:20] LABS: CALCIUM 9.4 mg/dL (8.5-10.1); CREATININE 0.9 mg/dL (0.6-1.0); GFR 62.1
[2020-10-15 14:30] LABS: ALBUMIN 3.9 g/dL (3.4-5.0); TOTAL BILIRUBIN 0.4 mg/dL (0.2-1.0); TOTAL PROTEIN 7.7 g/dL (6.4-8.2)
[2020-10-15 14:31] LABS: POTASSIUM 5.1 mmol/L (3.5-5.1)
--- NOTE | 2020-10-15 14:53 | RAD ---
CT HEAD AND C-SPINE WO History: Fall. Comparison: CT thoracic spine obtained concurrently. Technique: Noncontrast CT of the head and cervical spine. Findings: Motion artifact significantly limits examination. CT HEAD: There is no evidence for intracranial mass or hemorrhage. There is no hydrocephalus or midline shift. No abnormal extra-axial fluid collections are present. No evidence of large territorial infarction. There is focal hypodensity in the left basal ganglia whi ch may represent sequela of age-indeterminate lacunar infarct. The visualized paranasal sinuses and mastoid air cells are clear. The skull and scalp are within normal limits. CT CERVICAL SPINE: No cervical spine fractures identified, however motion artifact significantly degrades exam. Exaggerated cervical lordosis. There is moderate anterolisthesis of C3 on C4 and mild anterolisthesis of C4 on C5 on the basis of facet hypertrophy. Moderate disc space narrowing C4-C5 and C6-C7. Multilevel advanced facet hypertrophy. High-grade cervical stenosis measuring approximately 4 mm AP diameter at the level of C5. This may be overestimated by motion artifact. Atherosclerotic calcifications of the carotid bulbs. Enlarged thyroid. Impression: 1. Mildly motion degraded CT of the head without acute intracranial finding identified. Hypodensity in the left basal ganglia likely sequela of lacunar infarct. 2. Significantly motion degraded cervical spine CT without definite fracture identified. 3. High grade cervical stenosis at the level of C5 with approximately 4 mm AP diameter on the basis of facet hypertrophy and C3 on C4 and C4 on C5 anterolisthesis. Cervical stenosis may be overestimate d by motion artifact. 4. Enlarged thyroid without discrete mass identified. ------- Exposure: One or more of the following individualized dose reduction techniques were utilized for thi s examination: 1. Automated exposure control 2. Adjustment of the mA and/or kV according to patient size 3. Use of iterative reconstruction technique. Electronically signed by: Juan Rodrigez MD (10/15/2020 2:50 PM) [facility]
--- NOTE | 2020-10-15 15:10 | RAD ---
CT THORACIC SPINE WO History: Fall. Comparison: CT chest 05/15/2019 Technique: CT of the abdomen and pelvis with intravenous contrast. Findings: Motion artifact limits examination. Exaggerated thoracic kyphosis. No spondylolisthesis. No vertebral body fracture identified. Dense scl erotic lesion within the T8 vertebral body, unchanged from comparison likely bone island. Enlarged he art with calcifications in the coronary arteries. Enlarged thyroid. Left adrenal nodule measures 1.5 cm and demonstrates low attenuation consistent with adenoma. 1.6 x 1.0 cm nodule superior to the left kidney of uncertain significance, grossly stable from 2019, may represent splenule. Bandlike consoli dation in the right lower lobe, likely atelectasis and pleural effusion. Impression: 1. No acute findings in the thoracic spine. ------ Exposure: One or more of the following individualized dose reduction techniques were utilized for thi s examination: 1. Automated exposure control 2. Adjustment of the mA and/or kV according to patient size 3. Use of iterative reconstruction technique. Electronically signed by: Juan Rodrigez MD (10/15/2020 3:08 PM) [facility]
[2020-10-15] MEDS ORDERED: NALOXONE 0.4 MG/ML VIAL. IV ONE ×2 (16:15→18:15)
[2020-10-15] MEDS ORDERED: FLUMAZENIL 0.5 MG/5 ML VIAL. IV ONE (19:00)
[2020-10-15] MEDS ORDERED: hydrALAZINE 20 MG/ML VIAL. IV ONE (20:00)
[2020-10-15] MEDS ORDERED: hydroCHLOROthiazide 25 MG TABLET PO ONE (20:15)
[2020-10-15 22:20] VITALS: BP 160/90
[2020-10-16] MEDS: KETOROLAC TROMETHAMINE 10 MG TABLET PO PRN ×2 (04:44→10:35)
[2020-10-16 06:00] VITALS: BP 138/85
[2020-10-16] MEDS ORDERED: DEXTROSE 50% 25 GM / 50ML DISP.SYRIN. IV PRN (08:15)
[2020-10-16] MEDS ORDERED: SERTRALINE 100 MG TABLET. PO SCH (09:00)
[2020-10-16] MEDS ORDERED: OXYBUTYNIN CHLORIDE 5 MG TABLET PO SCH (09:00)
[2020-10-16] MEDS ORDERED: metFORMIN 500 MG TABLET PO SCH (10:00)
[2020-10-16 10:23] VITALS: BP 121/73
[2020-10-16] MEDS: INSULIN LISPRO 300 UNITS/3 ML VIAL. SQ SCH ×2 (10:30→12:00)
--- NOTE | 2020-10-16 12:16 | RAD ---
XR HIP (WITH OR WITHOUT PELVIS) 1 VIEW History: Reason: L HIP PAIN POST FALL / Spl. Instructions: / History: Technique: AP view the pelvis and additional views of the hips. Comparison: None. Findings: Normal alignment. No fracture. Vascular calcifications. Impression: 1. No acute osseous abnormality. Electronically signed by: Teodoro Guillen DO (10/16/2020 12:14 PM) [id number]
--- NOTE | 2020-10-16 13:49 | HP ---
ADMIT DATE: 10/15/2020 HISTORY OF PRESENT ILLNESS: The patient is a 70-year-old female patient, who was brought to the Emergency Room by EMS after a fall. Family stated the patient took 2 Ativan and 1 hydrocodone prior to falling when she went to take a shower. The patient has a skin tear to her left forearm and abrasion to her back. The patient was alert to self only. The patient's speech was very garbled. It was unable to obtain health history from the patient at that time. Her boyfriend stated that he was helping her out at the shower when she slipped and fell back into the bathtub. The boyfriend denied the patient had hitting her head or losing consciousness. Denied being on any blood thinner. Her boyfriend stated that she has been told not to take her Ativan with her hydrocodone; however, when she take them both together she gets very groggy, but she does it anyways because of her chronic back pain. She was extensively investigated in the Emergency Room and had lab work as well as imaging studies. Her lab work was unremarkable. Her toxic screen was positive for opiates. Urinalysis was essentially unremarkable. She has had a CT scan of the head and cervical spine and no evidence of fracture or dislocation of cervical spine and no intracranial pathology. She has had thoracic spine CT, which showed no acute finding and thoracic spine. The patient was admitted for observation and she had marked altered mental status. In fact, they gave her Narcan at the Emergency Room. PAST MEDICAL HISTORY: Significant for chronic obstructive pulmonary disease with ongoing tobaccoism. She has multiple lung masses turned out to be empyema with a growth of Streptococcus intermedius and that was treated with chest tube and antibiotic. She has also history of diabetes. PAST SURGICAL HISTORY: Significant for chest tube placement. ALLERGIES: SULFA DRUGS. MEDICATIONS: She is currently on the following medications: She is on ipratropium bromide, albuterol sulfate by nebulizer 4 times a day, spironolactone 25 mg once a day, ibuprofen 600 mg every 8 hours, hydrocodone/APAP 5/325 one tablet every 6 hours. She is on tramadol 50 mg every 6 hours, sertraline 100 mg, she takes 200 mg daily, lorazepam 0.5 mg p.o. daily, Requip 0.5 mg at bedtime, Dulera 2 puffs twice a day, metformin 1000 mg twice a day, levothyroxine sodium 75 mcg once a day, oxybutynin chloride, Ditropan XL 5 mg once a day. FAMILY HISTORY: Noncontributory. SOCIAL HISTORY: She lives with her boyfriend. She does not have any children. She continued to smoke a pack a day. Continued to smoke despite the advice to contrary. She does not drink alcohol or use recreational drugs. She was an insurance claims adjuster. REVIEW OF SYSTEMS: As per history of present illness. PHYSICAL EXAMINATION: GENERAL: On arrival to the Emergency Room, the patient was somewhat pale, no jaundice, cyanosis or thyromegaly. No jugular venous distension. No limb edema. VITAL SIGNS: Her heart rate was 87, blood pressure was 190/106. Her temperature was 98.4, respiratory rate was 16, and oxygen saturation was 96% on 2 liters of oxygen. HEAD, EYES, EARS, NOSE AND THROAT: Showed normocephalic, atraumatic. NECK: Supple. HEART: Showed normal first and second heart sounds with no gallop, rub or murmur. CHEST: Clear to auscultation. No crepitation or rhonchi. ABDOMEN: Scaphoid, soft, nontender. NEUROLOGIC: She is awake, alert, responding appropriately. All cranial nerves intact. EXTREMITIES: She moves extremities without difficulty. LABORATORY DATA: Showed a white cell count 4600, hemoglobin 13, hematocrit 40, MCV 102 and platelet count of 158,000 with normal manual differential. Her chemistry showed a serum sodium 139, potassium 5.1, chloride 105, bicarbonate 26, anion gap of 8, BUN 31, creatinine 0.9, estimated GFR was 62 mL per minute. Her glucose 126 and calcium was 9.4. Total bilirubin, AST, ALT, alkaline phosphatase were normal. Her total protein was 7.7, albumin was 3.9. Urinalysis showed the urine was yellow, clear with a pH of 7, specific gravity of 1.015. The urine was negative for protein, glucose, ketones, blood, nitrite and leukocyte esterase, 20-40 rbc's, rare wbc's, and very few bacteria. Her toxic screen was positive for opiates, but negative for methadone, barbiturates, phencyclidine, amphetamine, methamphetamine, benzodiazepine, cocaine, cannabinoids, and ethyl alcohol. ASSESSMENT AND PLAN: The patient was admitted with altered mental status, history of fall, hypertension, opiate dependence and chronic back pain. Other medical problems include chronic obstructive pulmonary disease with history of loculated hydropneumothorax treated with chest tube and Streptococcus intermedius treated with penicillin V. JOE ALFARO MD DR: LEXI/ted JOB#: [id number] / [id number]
== END 2020-10-16 14:20 | disposition left against medical advice (07) ==
LOC: ER 12:44 → 1 SOUTH 21:30 → INTOOBSV 21:30
PROVIDERS: ADMIT Hospitalist; ATTEND Hospitalist
DX: R41.82 Altered mental status, unspecified (principal); S51.812A Laceration without foreign body of left forearm, initial encounter; S30.810A Abrasion of lower back and pelvis, initial encounter; I10 Essential (primary) hypertension; F11.20 Opioid dependence, uncomplicated; M54.9 Dorsalgia, unspecified; G89.29 Other chronic pain; J44.9 Chronic obstructive pulmonary disease, unspecified; I63.81 Other cerebral infarction due to occlusion or stenosis of small artery; M43.12 Spondylolisthesis, cervical region; M48.02 Spinal stenosis, cervical region; E11.9 Type 2 diabetes mellitus without complications; E78.5 Hyperlipidemia, unspecified; R29.700 NIHSS score 0; F17.210 Nicotine dependence, cigarettes, uncomplicated; Z85.9 Personal history of malignant neoplasm, unspecified; Z91.81 History of falling; Z79.899 Other long term (current) drug therapy; Z79.84 Long term (current) use of oral hypoglycemic drugs; W18.2XXA Fall in (into) shower or empty bathtub, initial encounter; Y93.E1 Activity, personal bathing and showering; Y92.89 Other specified places as the place of occurrence of the external cause; Y99.8 Other external cause status
CPT/HCPCS: 36415; 70450; 72125; 72128; 73521; 80053; 80307; 81001; 82947; 85025; 96374; 96375; 96376; 97116; 97162; 97166; 99285; 99406; G0378; J0360; J1815; J2310; J3490; G0379

== ENCOUNTER → 2021-02-10 | Outpatient (CLI) | payer MEDICARE ==
--- NOTE | 2021-02-10 16:46 | RAD ---
EXAM: XR CHEST 2V, XR ABDOMEN 2V 02/10/2021 10:58 AM CLINICAL INDICATION: Lung nodule, Right-sided anterior abdominal COMPARISON: CT 05/15/2019 and chest graft 06/14/2019 TECHNIQUE: PA and lateral views of the chest. AP supine and upright view the abdomen FINDINGS: CHEST: The heart and mediastinum are normal. Lungs are well-expanded. The right pleural catheter has been removed and the hydropneumothorax has resolved. There is a residual small right pleural effusion and adjacent opacities, decreased. The left lung is clear. No pneumothorax. No acute osseous abnorma lity. ABDOMEN: Bowel gas pattern is nonspecific and nonobstructive. Moderate volume of stool. No abnormal c alcifications. No pneumoperitoneum. There is mild degenerative disc disease in the lumbar spine. IMPRESSION: 1. Interval removal of right pleural catheter. Previously seen hydropneumothorax has resolved and the re is now a residual small right pleural effusion and adjacent opacities which may be scarring or ate lectasis. 2. No acute abnormality in the abdomen. Electronically signed by: Laly Carmichael MD (02/10/2021 4:43 PM) [id number]
== END ==
LOC: RAD 10:54
PROVIDERS: ATTEND Family Medicine
DX: J90 Pleural effusion, not elsewhere classified (principal); R10.9 Unspecified abdominal pain; M51.36 Other intervertebral disc degeneration, lumbar region
CPT/HCPCS: 71046; 74019